=== PATIENT | female | born 1960 | race African-American/Black ===

== ENCOUNTER 2021-06-26 07:03 | Observation (INO) | payer OTHER ==
[2021-06-26 07:35] LABS: #Basophils 0.1 10x3/uL (0.0-0.2); #Eosinphils 0.3 10x3/uL (0.0-0.5); #Monocytes 0.5 10x3/uL (0.0-1.1); #Neutrophils 4.1 10x3/uL (1.5-8.4); %Basophils 0.9 % (0.0-2.0); %Eosinophils 5.1 % (0.0-6.0); %Lymphocytes 26.3 % (18.0-47.0); %Neutrophils 60.4 % (40.0-75.0); Hemoglobin 11.3 g/dL (12.0-15.5); Mean Corpuscular HGB CONC 29.8 g/dL (32.0-36.0); Mean Corpuscular Hemoglobin 23.8 pg (27.0-33.0); Mean Corpuscular Volume 79.8 fl (81.6-98.3); Mean Platelet Volume 10.6 fl (7.4-10.4); Platelet Count 254 10x3/uL (150-450); RBC Distribution Width 17.5 % (11.5-14.5); Red Blood Cell (RBC) Count 4.75 10x6/uL (3.90-5.03); White Blood Cell (WBC) Count 6.7 10x3/uL (3.5-10.5)
[2021-06-26] MEDS ORDERED: Nitroglycerin 2% Ointment 1 INCH/1 GM Packet ONE (07:35)
[2021-06-26 07:52] LABS: ALT (SGPT) 6 U/L (8-55); AST (SGOT) 10 U/L (5-34); Albumin 4.1 g/dL (3.5-5.0); Alkaline Phosphatase 80 U/L (40-110); Anion Gap 13 mmol/L (10-20); BUN (Urea Nitrogen) 31 mg/dL (9.8-20.1); Bilirubin, Total 0.2 mg/dL (0.2-1.2); Calc. Creatinine Clearance 0 mL/min (70-130); Calcium 9.3 mg/dL (7.8-10.44); Carbon Dioxide 28 mmol/L (22-29); Chloride 104 mmol/L (98-107); Globulin 4.2 g/dL (2.4-3.5); Glucose 92 mg/dL (70-105); Potassium 3.8 mmol/L (3.5-5.1); Protein, Total 8.3 g/dL (6.0-8.3); Sodium 141 mmol/L (136-145)
[2021-06-26 08:05] LABS: Anisocytosis SLIGHT = 6-15 cells (100X) (0-5/hpf); Hypochromia SLIGHT = 6-15 cells (100X) (0-5/hpf)
[2021-06-26 08:06] LABS: Platelet Morphology Comment Appears Adequate
[2021-06-26] MEDS ORDERED: Acetaminophen 325 MG TAB PO PRN (08:39)
[2021-06-26] MEDS ORDERED: HYDROcodone/Acetaminophen 5/325 mg Tablet PO PRN (08:39)
[2021-06-26] MEDS ORDERED: Ondansetron PF 4 MG/2 ML Vial IVP PRN (08:39)
[2021-06-26] MEDS ORDERED: HumaLOG 300 UNITS/3 ML VIAL SC PRN (08:49)
[2021-06-26] MEDS ORDERED: Dextrose 50% Abboject 50 ML SYRINGE SLOW IVP PRN (08:49)
[2021-06-26] MEDS ORDERED: Dextrose 5% in Water 1,000 ML IV PRN (08:49)
[2021-06-26] MEDS ORDERED: Carvedilol 25 MG TAB PO SCH ×2 (09:00→21:00)
[2021-06-26] MEDS ORDERED: Aspirin 81 mg Enteric Coated Tablet PO SCH (09:00)
[2021-06-26] MEDS ORDERED: Furosemide 40 MG TAB PO SCH (09:00)
[2021-06-26] MEDS ORDERED: Losartan Potassium 50 MG TAB PO SCH (09:00)
[2021-06-26] MEDS ORDERED: Famotidine 20 MG TAB PO SCH (09:00)
[2021-06-26] MEDS ORDERED: Nystatin Powder 15 GM BOT TOP PRN (09:01)
[2021-06-26] MEDS ORDERED: Pregabalin 50 MG CAP PO SCH ×2 (09:45→15:00)
[2021-06-26 10:24] VITALS: BMI 48.4
[2021-06-26 11:13] LABS: Troponin I Less than 0.010 ng/mL (< 0.028)
[2021-06-26] MEDS: Heparin 5,000 UNITS/ML VIAL SC SCH ×2 (13:23→15:35)
[2021-06-26 15:27] LABS: Troponin I Less than 0.010 ng/mL (< 0.028)
[2021-06-26 16:41] VITALS: BP 151/67; TEMP 96.6
[2021-06-26] MEDS ORDERED: Amlodipine 10 MG TAB PO SCH (21:00)
[2021-06-26] MEDS ORDERED: Oxybutynin 5 MG TAB PO SCH (21:00)
[2021-06-26] MEDS ORDERED: Topiramate 25 MG TAB PO SCH (21:00)
[2021-06-26] MEDS ORDERED: Lantus 1000 UNITS/10 ML VIAL SC SCH (21:00)
[2021-06-26] MEDS ORDERED: Atorvastatin Calcium 10 MG TAB PO SCH (21:00)
[2021-06-26 22:56] LABS: SARS-CoV-2 PCR by NAA Not Detected (NotDetected)
[2021-06-27] MEDS ORDERED: Alogliptin 25 MG TAB PO SCH (09:00)
== END 2021-06-26 19:30 ==
LOC: CSHERS 07:03 → CSHTELE 09:12
PROVIDERS: ADMIT Internal Medicine; ATTEND Internal Medicine
DX: R07.2 Precordial pain (principal); I25.10 Atherosclerotic heart disease of native coronary artery without angina pectoris; E11.9 Type 2 diabetes mellitus without complications; I10 Essential (primary) hypertension; E78.5 Hyperlipidemia, unspecified; Z95.5 Presence of coronary angioplasty implant and graft; E66.01 Morbid (severe) obesity due to excess calories; Z79.4 Long term (current) use of insulin; Z79.899 Other long term (current) drug therapy; Z79.82 Long term (current) use of aspirin; Z20.822 Contact with and (suspected) exposure to COVID-19
CPT/HCPCS: 36415; 36416; 71045; 80053; 83690; 83880; 84484; 85025; 93005; 93306; 94760; G0378; J1644; U0003; U0005

== ENCOUNTER 2021-09-11 01:39 | Emergency (ER) | payer OTHER | END 2021-09-11 02:20 | disposition home or self-care (01) | LOC: CSHERS 01:39 | DX: K62.89 Other specified diseases of anus and rectum (principal); E11.9 Type 2 diabetes mellitus without complications; E78.5 Hyperlipidemia, unspecified; I25.10 Atherosclerotic heart disease of native coronary artery without angina pectoris; I10 Essential (primary) hypertension; K21.9 Gastro-esophageal reflux disease without esophagitis; Z87.891 Personal history of nicotine dependence | CPT/HCPCS: 99283 ==

== ENCOUNTER 2021-12-03 14:40 | Inpatient (IN) | payer OTHER ==
[2021-12-03 15:41] LABS: Bilirubin Neg (Negative); Blood, Urine Negative (Negative); Clarity Clear (Clear); Glucose, Urine (Dipstick) Normal (Negative); Ketone, Urine Negative (Negative); Leukocyte Negative (Negative); Nitrite Negative (Negative); Protein, Urine (Dipstick) Negative (Neg-Trace); Specific Gravity, Urine 1.015 (1.005-1.030); Urobilinogen Normal mg/dL (Less than 2)
[2021-12-03] MEDS ORDERED: Hydrocortisone Sod Succ/PF 100 mg/2 ml Vial ONE (16:18)
[2021-12-03 17:01] LABS: #Basophils 0.1 10x3/uL (0.0-0.2); #Eosinphils 0.5 10x3/uL (0.0-0.5); #Monocytes 0.4 10x3/uL (0.0-1.1); #Neutrophils 3.5 10x3/uL (1.5-8.4); %Basophils 0.8 % (0.0-2.0); %Eosinophils 8.2 % (0.0-6.0); %Lymphocytes 24.8 % (18.0-47.0); %Monocytes 7.2 % (0.0-10.0); %Neutrophils 58.7 % (40.0-75.0); Hemoglobin 7.1 g/dL (12.0-15.5); Mean Corpuscular HGB CONC 29.3 g/dL (32.0-36.0); Mean Corpuscular Hemoglobin 24.6 pg (27.0-33.0); Mean Corpuscular Volume 83.7 fl (81.6-98.3); Mean Platelet Volume 10.3 fl (7.4-10.4); Platelet Count 196 10x3/uL (150-450); RBC Distribution Width 17.5 % (11.5-14.5); Red Blood Cell (RBC) Count 2.89 10x6/uL (3.90-5.03)
[2021-12-03 17:16] LABS: ALT (SGPT) 8 U/L (8-55); AST (SGOT) 9 U/L (5-34); Albumin 2.8 g/dL (3.5-5.0); Alkaline Phosphatase 88 U/L (40-110); Anion Gap 13 mmol/L (10-20); BUN (Urea Nitrogen) 37 mg/dL (9.8-20.1); Bilirubin, Total 0.1 mg/dL (0.2-1.2); Calc. Creatinine Clearance 0 mL/min (70-130); Calcium 8.7 mg/dL (7.8-10.44); Carbon Dioxide 23 mmol/L (22-29); Chloride 109 mmol/L (98-107); Estimated GFR 37; Globulin 3.5 g/dL (2.4-3.5); Glucose 137 mg/dL (70-105); Magnesium 1.7 mg/dL (1.6-2.6); Potassium 4.6 mmol/L (3.5-5.1); Protein, Total 6.3 g/dL (6.0-8.3); Sodium 140 mmol/L (136-145)
[2021-12-03 17:49] LABS: Anisocytosis SLIGHT = 6-15 cells (100X) (0-5/hpf); Hypochromia SLIGHT = 6-15 cells (100X) (0-5/hpf); Large Platelets SLIGHT; Platelet Morphology Comment Appears Adequate
[2021-12-03] MEDS ORDERED: Acetaminophen 325 MG TAB PO PRN ×2 (18:44→23:26)
[2021-12-03] MEDS ORDERED: Senokot S 8.6-50 MG TAB PO PRN (18:44)
[2021-12-03] MEDS ORDERED: Ondansetron PF 4 MG/2 ML Vial IVP PRN (18:44)
[2021-12-03] MEDS ORDERED: Dextrose 50% Abboject 50 ML SYRINGE SLOW IVP PRN (18:49)
[2021-12-03] MEDS ORDERED: Dextrose 5% in Water 1,000 ML IV PRN (18:49)
[2021-12-03] MEDS ORDERED: HumaLOG 300 UNITS/3 ML VIAL SC PRN (18:49)
[2021-12-03] MEDS ORDERED: Cefepime 2 GM VIAL ONE (19:12)
[2021-12-03] MEDS ORDERED: VANCOMYCIN 2 GRAM/400 ML BAG 2 GM in Premix Bag 1 BAG IVPB SCH (20:00)
[2021-12-03] MEDS ORDERED: Famotidine 20 MG TAB PO SCH (21:00)
[2021-12-03 22:30] VITALS: BMI 65.3
[2021-12-03] MEDS: Clindamycin 150 MG CAP PO SCH (23:42)
[2021-12-03] MEDS ORDERED: Piperacillin/Tazobactam 3.375 GM in Sodium Chloride 0.9% 100 ML IVPB SCH (23:59)
[2021-12-04 01:15] LABS: SARS-CoV-2 NAA Rapid Test Not Detected (NotDetected)
[2021-12-04] MEDS: Hydrocortisone Sod Succ/PF 100 mg/2 ml Vial IVP SCH ×3 (05:02→17:46)
[2021-12-04 05:27] LABS: Anion Gap 14 mmol/L (10-20); BUN (Urea Nitrogen) 34 mg/dL (9.8-20.1); Calc. Creatinine Clearance 115 mL/min (70-130); Carbon Dioxide 23 mmol/L (22-29); Chloride 110 mmol/L (98-107); Estimated GFR 42; Glucose 100 mg/dL (70-105); Potassium 4.9 mmol/L (3.5-5.1); Sodium 142 mmol/L (136-145)
[2021-12-04 05:31] LABS: #Eosinphils 0.1 10x3/uL (0.0-0.5); #Monocytes 0.5 10x3/uL (0.0-1.1); #Neutrophils 6.9 10x3/uL (1.5-8.4); %Basophils 0.5 % (0.0-2.0); %Eosinophils 0.7 % (0.0-6.0); %Lymphocytes 10.7 % (18.0-47.0); %Monocytes 5.7 % (0.0-10.0); %Neutrophils 82.2 % (40.0-75.0); Hemoglobin 8.8 g/dL (12.0-15.5); Mean Corpuscular HGB CONC 30.8 g/dL (32.0-36.0); Mean Corpuscular Hemoglobin 25.5 pg (27.0-33.0); Mean Corpuscular Volume 82.9 fl (81.6-98.3); Mean Platelet Volume 10.2 fl (7.4-10.4); Platelet Count 220 10x3/uL (150-450); RBC Distribution Width 17.4 % (11.5-14.5); Red Blood Cell (RBC) Count 3.45 10x6/uL (3.90-5.03); White Blood Cell (WBC) Count 8.4 10x3/uL (3.5-10.5)
[2021-12-04] MEDS: Clindamycin 150 MG CAP PO SCH (08:20)
[2021-12-04] MEDS: Topiramate 25 MG TAB PO SCH ×2 (08:21→21:37)
[2021-12-04] MEDS: Aripiprazole 10 MG TAB PO SCH (08:21)
[2021-12-04] MEDS: Oxybutynin 5 MG TAB PO SCH ×2 (08:21→21:34)
[2021-12-04] MEDS: Apixaban 5 MG TAB PO SCH ×2 (08:22→21:34)
[2021-12-04] MEDS: Famotidine 20 MG TAB PO SCH (08:22)
[2021-12-04] MEDS: Alogliptin 25 MG TAB PO SCH (08:22)
[2021-12-04] MEDS: Cholecalciferol 1,000 UNITS (25 MCG) TAB PO SCH (08:22)
[2021-12-04] MEDS: Aspirin 81 mg Enteric Coated Tablet PO SCH (08:22)
[2021-12-04] MEDS ORDERED: Carvedilol 25 MG TAB PO SCH ×2 (11:15→23:00)
[2021-12-04] MEDS: Carvedilol 25 MG TAB PO SCH ×2 (12:06→12:15)
[2021-12-04 20:32] LABS: Vancomycin, Random 22.6 ug/mL (See Comment)
[2021-12-04] MEDS ORDERED: hydrALAZINE 20 MG/ML VIAL SLOW IVP SCH (21:15)
[2021-12-04] MEDS: Pregabalin 25 MG CAP PO SCH (21:34)
[2021-12-04] MEDS: Atorvastatin Calcium 10 MG TAB PO SCH (21:34)
[2021-12-04] MEDS: Lantus 1000 UNITS/10 ML VIAL SC SCH (21:36)
[2021-12-05] MEDS ORDERED: Vancomycin 1.5 GRAM/300 ML BAG 1.5 GM in Premix Bag 1 BAG IVPB SCH ×2 (09:00→15:00)
[2021-12-05] MEDS: Carvedilol 25 MG TAB PO SCH ×2 (10:38→16:36)
[2021-12-05] MEDS: Famotidine 20 MG TAB PO SCH (10:39)
[2021-12-05] MEDS: Aripiprazole 10 MG TAB PO SCH (10:40)
[2021-12-05] MEDS: Apixaban 5 MG TAB PO SCH ×2 (10:41→22:01)
[2021-12-05] MEDS: Aspirin 81 mg Enteric Coated Tablet PO SCH (10:41)
[2021-12-05] MEDS: Furosemide 40 MG TAB PO SCH (10:42)
[2021-12-05] MEDS: Cholecalciferol 1,000 UNITS (25 MCG) TAB PO SCH (10:42)
[2021-12-05] MEDS: Alogliptin 25 MG TAB PO SCH (10:42)
[2021-12-05] MEDS: Oxybutynin 5 MG TAB PO SCH ×2 (10:43→22:01)
[2021-12-05] MEDS: Topiramate 25 MG TAB PO SCH (10:43)
[2021-12-05] MEDS: Pregabalin 25 MG CAP PO SCH ×2 (10:44→22:01)
[2021-12-05] MEDS: Atorvastatin Calcium 10 MG TAB PO SCH (22:01)
[2021-12-05] MEDS: Lantus 1000 UNITS/10 ML VIAL SC SCH (22:02)
[2021-12-05] MEDS ORDERED: Pregabalin 25 MG CAP ONE (22:03)
[2021-12-06] MEDS: Topiramate 25 MG TAB PO SCH ×2 (00:49→08:56)
[2021-12-06 04:25] LABS: Anion Gap 13 mmol/L (10-20); BUN (Urea Nitrogen) 32 mg/dL (9.8-20.1); Calc. Creatinine Clearance 138 mL/min (70-130); Carbon Dioxide 25 mmol/L (22-29); Chloride 105 mmol/L (98-107); Estimated GFR 52; Glucose 93 mg/dL (70-105); Potassium 4.3 mmol/L (3.5-5.1); Sodium 139 mmol/L (136-145)
[2021-12-06] MEDS: Aripiprazole 10 MG TAB PO SCH (08:50)
[2021-12-06] MEDS: Carvedilol 25 MG TAB PO SCH (08:56)
[2021-12-06] MEDS: Furosemide 40 MG TAB PO SCH (08:57)
[2021-12-06] MEDS: Famotidine 20 MG TAB PO SCH (08:57)
[2021-12-06] MEDS: Cholecalciferol 1,000 UNITS (25 MCG) TAB PO SCH (08:58)
[2021-12-06] MEDS: Apixaban 5 MG TAB PO SCH (08:58)
[2021-12-06] MEDS: Aspirin 81 mg Enteric Coated Tablet PO SCH (08:58)
[2021-12-06] MEDS: Oxybutynin 5 MG TAB PO SCH (08:59)
[2021-12-06] MEDS: Alogliptin 25 MG TAB PO SCH (08:59)
[2021-12-06] MEDS: Pregabalin 25 MG CAP PO SCH (09:05)
[2021-12-06 12:21] VITALS: TEMP 98.2
[2021-12-06 15:37] LABS: Vancomycin, Random 22.9 ug/mL (See Comment)
[2021-12-06 15:56] VITALS: BP 138/78
== END 2021-12-06 15:40 | disposition home or self-care (01) | DRG 922 ==
LOC: CSHERS 14:40 → OBSVTOIN 21:10 → CSHTELE 21:10
PROVIDERS: ADMIT Internal Medicine Geriatric Medicine; ATTEND Internal Medicine
DX: T68.XXXA Hypothermia, initial encounter (principal); G92.8 Other toxic encephalopathy; N17.9 Acute kidney failure, unspecified; Z68.44 Body mass index [BMI] 60.0-69.9, adult; I48.0 Paroxysmal atrial fibrillation; D63.1 Anemia in chronic kidney disease; I25.10 Atherosclerotic heart disease of native coronary artery without angina pectoris; E11.22 Type 2 diabetes mellitus with diabetic chronic kidney disease; I12.9 Hypertensive chronic kidney disease with stage 1 through stage 4 chronic kidney disease, or unspecified chronic kidney disease; E66.01 Morbid (severe) obesity due to excess calories; N18.2 Chronic kidney disease, stage 2 (mild); E78.5 Hyperlipidemia, unspecified; F32.9 Major depressive disorder, single episode, unspecified; T42.6X5A Adverse effect of other antiepileptic and sedative-hypnotic drugs, initial encounter; K21.9 Gastro-esophageal reflux disease without esophagitis; F25.0 Schizoaffective disorder, bipolar type; T50.995A Adverse effect of other drugs, medicaments and biological substances, initial encounter; Z88.8 Allergy status to other drugs, medicaments and biological substances; Z79.01 Long term (current) use of anticoagulants; Z87.891 Personal history of nicotine dependence; Z79.4 Long term (current) use of insulin; Z86.16 Personal history of COVID-19; Z79.82 Long term (current) use of aspirin; Z95.5 Presence of coronary angioplasty implant and graft; Z79.899 Other long term (current) drug therapy
CPT/HCPCS: 36415; 36416; 36430; 51702; 70450; 71045; 80048; 80053; 80202; 81003; 82274; 82533; 83605; 83735; 83880; 84443; 84484; 85025; 86850; 86900; 86901; 87040; 93005; 94760; 96361; 96374; 96375; J0360; J0692; J1720; J1815; J3370; P9016; U0002

== ENCOUNTER 2024-01-22 05:34 | Inpatient (IN) | payer OTHER ==
[2024-01-22 06:49] LABS: ALT (SGPT) Less than 7 U/L (8-55); AST (SGOT) 13 U/L (5-34); Albumin 3.3 g/dL (3.4-4.8); Alkaline Phosphatase 113 U/L (40-110); Anion Gap 16 mmol/L (10-20); BUN (Urea Nitrogen) 34 mg/dL (9.8-20.1); Bilirubin, Total 0.2 mg/dL (0.2-1.2); Calc. Creatinine Clearance 0 mL/min (70-130); Calcium 9.6 mg/dL (7.8-10.44); Carbon Dioxide 21 mmol/L (23-31); Chloride 110 mmol/L (98-107); Estimated GFR 41; Globulin 5.3 g/dL (2.4-3.5); Glucose 155 mg/dL (80-115); Potassium 4.3 mmol/L (3.5-5.1); Protein, Total 8.6 g/dL (5.8-8.1); Sodium 143 mmol/L (136-145)
[2024-01-22 06:54] LABS: Troponin I Less than 0.010 ng/mL (< 0.028)
[2024-01-22 07:01] LABS: #Basophils 0.03 10x3/uL (0.0-0.2); #Eosinophils 0.18 10x3/uL (0.0-0.5); #Monocytes 0.41 10x3/uL (0.0-1.1); #Neutrophils 6.27 10x3/uL (1.5-8.4); %Basophils 0.3 % (0.0-2.0); %Lymphocytes 22.9 % (18.0-47.0); %Monocytes 4.6 % (0.0-10.0); %Neutrophils 69.6 % (40.0-75.0); Hematocrit 21.2 % (34.9-44.5); Hemoglobin 6.2 g/dL (12.0-15.5); Mean Corpuscular HGB CONC 29.2 g/dL (32.0-36.0); Mean Corpuscular Hemoglobin 25.3 pg (27.0-33.0); Mean Corpuscular Volume 86.5 fL (81.6-98.3); Mean Platelet Volume 9.7 fL (7.4-10.4); Platelet Count 361 10x3/uL (150-450); RBC Distribution Width 19.6 % (11.5-14.5); Red Blood Cell (RBC) Count 2.45 10x6/uL (3.90-5.03)
[2024-01-22] MEDS ORDERED: Glucagon 1 MG/ML KIT IM PRN (08:20)
[2024-01-22] MEDS ORDERED: Dextrose 50% Abboject 50 ML SYRINGE SLOW IVP PRN (08:20)
[2024-01-22] MEDS ORDERED: Dextrose 5% in Water 1,000 ML IV PRN (08:20)
[2024-01-22] MEDS ORDERED: Acetaminophen 325 MG TAB PO PRN (08:20)
[2024-01-22] MEDS ORDERED: Nitroglycerin 0.4 MG TAB 1 EACH SL PRN (08:40)
[2024-01-22] MEDS: Pantoprazole 40 MG VIAL IVP SCH (09:00)
[2024-01-22] MEDS ORDERED: Aspirin Chewable 81 MG TAB PO SCH (09:00)
[2024-01-22 10:19] LABS: Troponin I Less than 0.010 ng/mL (< 0.028)
[2024-01-22 12:41] LABS: Troponin I Less than 0.010 ng/mL (< 0.028)
[2024-01-22 15:12] VITALS: BMI 42.9
[2024-01-22] MEDS: Carvedilol 25 MG TAB PO SCH (18:12)
[2024-01-22] MEDS ORDERED: Nitroglycerin 0.4 MG TAB (25 Tab Bottle) SL PRN (21:18)
[2024-01-22] MEDS: Lantus 1000 UNITS/10 ML VIAL SC SCH (21:37)
[2024-01-22 22:12] LABS: Critical Call w/ Read Back @CRITICAL LED NUR.TL5 @2210; Hematocrit 17.1 % (34.9-44.5); Hemoglobin 5.1 g/dL (12.0-15.5)
[2024-01-22] MEDS ORDERED: Octreotide Acetate 50 MCG/ML AMP SLOW IVP SCH (22:30)
[2024-01-23] MEDS: Octreotide Acetate 50 MCG/ML AMP SLOW IVP SCH (00:09)
[2024-01-23] MEDS: Pantoprazole 80 MG, Admixture Fee 1 EACH in Sodium Chloride 0.9% 100 ML IVPB SCH (00:15)
[2024-01-23] MEDS: Octreotide Acetate 1,250 MCG in Sodium Chloride 0.9% 250 ML 250 ML IVPB SCH (02:15)
[2024-01-23 03:48] LABS: #Basophils 0.04 10x3/uL (0.0-0.2); #Monocytes 0.54 10x3/uL (0.0-1.1); %Basophils 0.4 % (0.0-2.0); %Eosinophils 2.2 % (0.0-6.0); %Lymphocytes 26.7 % (18.0-47.0); %Monocytes 5.9 % (0.0-10.0); %Neutrophils 64.3 % (40.0-75.0); Hematocrit 21.4 % (34.9-44.5); Hemoglobin 6.3 g/dL (12.0-15.5); Mean Corpuscular HGB CONC 29.4 g/dL (32.0-36.0); Mean Corpuscular Hemoglobin 24.5 pg (27.0-33.0); Mean Corpuscular Volume 83.3 fL (81.6-98.3); Mean Platelet Volume 9.6 fL (7.4-10.4); Platelet Count 245 10x3/uL (150-450); RBC Distribution Width 19.9 % (11.5-14.5); Red Blood Cell (RBC) Count 2.57 10x6/uL (3.90-5.03); White Blood Cell (WBC) Count 9.2 10x3/uL (3.5-10.5)
[2024-01-23 04:03] LABS: Anion Gap 14 mmol/L (10-20); BUN (Urea Nitrogen) 37 mg/dL (9.8-20.1); Calc. Creatinine Clearance 99 mL/min (70-130); Calcium 8.8 mg/dL (7.8-10.44); Carbon Dioxide 19 mmol/L (23-31); Chloride 113 mmol/L (98-107); Estimated GFR 59; Glucose 98 mg/dL (80-115); Potassium 3.9 mmol/L (3.5-5.1); Sodium 142 mmol/L (136-145)
[2024-01-23] MEDS ORDERED: Acetaminophen 325 MG TAB PO PRN (08:12)
[2024-01-23] MEDS ORDERED: Bisacodyl 5 MG TAB PO PRN (08:12)
[2024-01-23] MEDS ORDERED: Bisacodyl 10 MG SUPP PR PRN (08:12)
[2024-01-23] MEDS ORDERED: Cyclobenzaprine 10 MG TAB PO PRN (08:17)
[2024-01-23] MEDS ORDERED: Miconazole Nitrate Powder 2% 45 gm TOP PRN (08:20)
[2024-01-23] MEDS ORDERED: Nystatin Powder 15 GM BOT TOP PRN (08:21)
[2024-01-23 09:19] LABS: Hematocrit 25.1 % (34.9-44.5); Hemoglobin 7.8 g/dL (12.0-15.5)
[2024-01-23 09:32] LABS: Iron 196 ug/dL (50-170); Iron Binding Capacity, Total 293 mcg/dL (265-497)
[2024-01-23 09:43] LABS: INR-International Normal Ratio 1.1; PTT 25.9 sec (22.0-33.0); Prothrombin Time 11.4 sec (9.5-12.1)
[2024-01-23] MEDS: glipiZIDE 5 MG TAB PO SCH (10:03)
[2024-01-23] MEDS: Magnesium Oxide 400 MG TAB PO SCH (10:04)
[2024-01-23] MEDS: Isosorbide Mononitrate 30 MG ER.TAB PO SCH (10:04)
[2024-01-23] MEDS: Gabapentin 300 MG CAP PO SCH (10:04)
[2024-01-23] MEDS: Cholecalciferol 1,000 UNITS (25 MCG) TAB PO SCH (10:04)
[2024-01-23] MEDS: Lantus 1000 UNITS/10 ML VIAL SC SCH (10:04)
[2024-01-23] MEDS: Oxybutynin 5 MG TAB PO SCH (10:04)
[2024-01-23] MEDS: Insulin Regular, Human 100 UNIT/ML 10 ML VIAL SC PRN (13:32)
[2024-01-23 16:53] LABS: Hemoglobin 8.3 g/dL (12.0-15.5)
[2024-01-23] MEDS: GoLYTELY 4,000 ml Bottle PO SCH (19:35)
[2024-01-23 21:18] VITALS: BMI 42.9
[2024-01-23 23:23] LABS: Hemoglobin 9.4 g/dL (12.0-15.5)
[2024-01-24 05:10] LABS: Anion Gap 15 mmol/L (10-20); BUN (Urea Nitrogen) 25 mg/dL (9.8-20.1); Calc. Creatinine Clearance 108 mL/min (70-130); Calcium 9.1 mg/dL (7.8-10.44); Carbon Dioxide 20 mmol/L (23-31); Chloride 111 mmol/L (98-107); Estimated GFR 66; Glucose 157 mg/dL (80-115); Sodium 142 mmol/L (136-145)
[2024-01-24 05:16] LABS: #Basophils 0.06 10x3/uL (0.0-0.2); #Eosinophils 0.21 10x3/uL (0.0-0.5); #Monocytes 0.74 10x3/uL (0.0-1.1); #Neutrophils 6.63 10x3/uL (1.5-8.4); %Basophils 0.6 % (0.0-2.0); %Eosinophils 2.1 % (0.0-6.0); %Lymphocytes 22.4 % (18.0-47.0); %Monocytes 7.5 % (0.0-10.0); %Neutrophils 66.9 % (40.0-75.0); Hemoglobin 9.5 g/dL (12.0-15.5); Mean Corpuscular HGB CONC 31.7 g/dL (32.0-36.0); Mean Corpuscular Hemoglobin 25.7 pg (27.0-33.0); Mean Corpuscular Volume 81.3 fL (81.6-98.3); Mean Platelet Volume 9.5 fL (7.4-10.4); Platelet Count 261 10x3/uL (150-450); RBC Distribution Width 19.4 % (11.5-14.5); Red Blood Cell (RBC) Count 3.69 10x6/uL (3.90-5.03); White Blood Cell (WBC) Count 9.9 10x3/uL (3.5-10.5)
[2024-01-24] MEDS ORDERED: PROPOFOL 20 ML ONE ×2 (14:24→14:53)
[2024-01-24] MEDS ORDERED: PHENYLEPHRINE-NS 100 MCG/ML 10 ML SYRINGE ONE (14:35)
[2024-01-24 16:00] VITALS: BP 140/79; TEMP 98.1
[2024-01-25] MEDS ORDERED: Oxybutynin 5 MG TAB ONE (09:11)
[2024-01-25] MEDS ORDERED: Gabapentin 300 MG CAP ONE (09:11)
[2024-01-25] MEDS ORDERED: glipiZIDE 5 MG TAB ONE (09:11)
[2024-01-25] MEDS ORDERED: Isosorbide Mononitrate 30 MG ER.TAB ONE (09:11)
[2024-01-25] MEDS ORDERED: Magnesium Oxide 400 MG TAB ONE (09:11)
[2024-01-25] MEDS ORDERED: Cholecalciferol 1,000 UNITS (25 MCG) TAB ONE (09:11)
[2024-01-26 17:20] LABS: #Basophils 0.04 10x3/uL (0.0-0.2); #Eosinophils 0.16 10x3/uL (0.0-0.5); #Monocytes 0.51 10x3/uL (0.0-1.1); #Neutrophils 5.33 10x3/uL (1.5-8.4); %Basophils 0.5 % (0.0-2.0); %Lymphocytes 23.6 % (18.0-47.0); %Monocytes 6.4 % (0.0-10.0); %Neutrophils 67.2 % (40.0-75.0); Hematocrit 26.1 % (34.9-44.5); Hemoglobin 8.1 g/dL (12.0-15.5); Mean Corpuscular Hemoglobin 25.9 pg (27.0-33.0); Mean Corpuscular Volume 83.4 fL (81.6-98.3); Mean Platelet Volume 9.3 fL (7.4-10.4); Platelet Count 237 10x3/uL (150-450); RBC Distribution Width 19.1 % (11.5-14.5); Red Blood Cell (RBC) Count 3.13 10x6/uL (3.90-5.03); White Blood Cell (WBC) Count 7.9 10x3/uL (3.5-10.5)
[2024-01-27 20:15] LABS: #Basophils 0.04 10x3/uL (0.0-0.2); #Eosinophils 0.21 10x3/uL (0.0-0.5); #Monocytes 0.94 10x3/uL (0.0-1.1); #Neutrophils 5.71 10x3/uL (1.5-8.4); %Basophils 0.4 % (0.0-2.0); %Eosinophils 2.3 % (0.0-6.0); %Lymphocytes 23.5 % (18.0-47.0); %Monocytes 10.4 % (0.0-10.0); %Neutrophils 63.2 % (40.0-75.0); Hematocrit 26.5 % (34.9-44.5); Hemoglobin 8.1 g/dL (12.0-15.5); Mean Corpuscular HGB CONC 30.6 g/dL (32.0-36.0); Mean Corpuscular Hemoglobin 26.1 pg (27.0-33.0); Mean Corpuscular Volume 85.5 fL (81.6-98.3); Mean Platelet Volume 9.6 fL (7.4-10.4); Platelet Count 237 10x3/uL (150-450); RBC Distribution Width 19.4 % (11.5-14.5); White Blood Cell (WBC) Count 9.1 10x3/uL (3.5-10.5)
[2024-01-27 20:33] LABS: Anion Gap 13 mmol/L (10-20); BUN (Urea Nitrogen) 22 mg/dL (9.8-20.1); Carbon Dioxide 19 mmol/L (23-31); Chloride 113 mmol/L (98-107); Potassium 4.1 mmol/L (3.5-5.1); Sodium 141 mmol/L (136-145)
[2024-01-27 20:34] LABS: Calc. Creatinine Clearance 120 mL/min (70-130); Calcium 8.7 mg/dL (7.6-10.4); Estimated GFR 75; Glucose 94 mg/dL (80-115)
[2024-02-05 11:18] LABS: Hemoglobin 7.8 g/dL (12.0-15.5)
== END 2024-01-26 15:30 | disposition home or self-care (01) | DRG 812 ==
LOC: CSHERS 05:34 → CSHERHOLD 07:51 → CSHTELE 11:05 → OBSVTOIN 01-23 08:09
PROVIDERS: ADMIT Hospitalist; ATTEND Nurse Practitioner Acute Care
PROC: 0DJ08ZZ Inspection of Upper Intestinal Tract, Via Natural or Artificial Opening Endoscopic (ICD-10-PCS; principal; 2024-01-24)
PROC: 3E033XZ Introduction of Vasopressor into Peripheral Vein, Percutaneous Approach (ICD-10-PCS; 2024-01-24)
DX: D64.9 Anemia, unspecified (principal); Z68.41 Body mass index [BMI] 40.0-44.9, adult; R07.9 Chest pain, unspecified; I25.10 Atherosclerotic heart disease of native coronary artery without angina pectoris; K21.9 Gastro-esophageal reflux disease without esophagitis; E78.5 Hyperlipidemia, unspecified; E66.9 Obesity, unspecified; I12.9 Hypertensive chronic kidney disease with stage 1 through stage 4 chronic kidney disease, or unspecified chronic kidney disease; E11.22 Type 2 diabetes mellitus with diabetic chronic kidney disease; N18.30 Chronic kidney disease, stage 3 unspecified; E11.51 Type 2 diabetes mellitus with diabetic peripheral angiopathy without gangrene; F31.9 Bipolar disorder, unspecified; I48.0 Paroxysmal atrial fibrillation; D63.1 Anemia in chronic kidney disease; K29.60 Other gastritis without bleeding; Z98.42 Cataract extraction status, left eye; Z98.41 Cataract extraction status, right eye; Z74.01 Bed confinement status
CPT/HCPCS: 36415; 36416; 36430; 71045; 80048; 80053; 82607; 83540; 83550; 83615; 84484; 85025; 85610; 85730; 86850; 86900; 86901; 93005; 93010; 93306; 96374; 96375; 96376; G0378; J1815; J2354; J2470; J2704; J7050; P9016

== ENCOUNTER 2024-02-01 19:37 | Inpatient (IN) | payer OTHER ==
[2024-02-01] MEDS ORDERED: Pantoprazole 40 MG VIAL ONE (20:16)
[2024-02-01 20:30] LABS: #Basophils 0.03 10x3/uL (0.0-0.2); #Eosinophils 0.24 10x3/uL (0.0-0.5); #Monocytes 0.55 10x3/uL (0.0-1.1); #Neutrophils 7.04 10x3/uL (1.5-8.4); %Basophils 0.3 % (0.0-2.0); %Eosinophils 2.3 % (0.0-6.0); %Lymphocytes 24.5 % (18.0-47.0); %Monocytes 5.3 % (0.0-10.0); %Neutrophils 67.1 % (40.0-75.0); Hematocrit 18.1 % (34.9-44.5); Hemoglobin 5.4 g/dL (12.0-15.5); Mean Corpuscular HGB CONC 29.8 g/dL (32.0-36.0); Mean Corpuscular Hemoglobin 26.1 pg (27.0-33.0); Mean Corpuscular Volume 87.4 fL (81.6-98.3); Mean Platelet Volume 10.1 fL (7.4-10.4); Platelet Count 263 10x3/uL (150-450); RBC Distribution Width 19.3 % (11.5-14.5); Red Blood Cell (RBC) Count 2.07 10x6/uL (3.90-5.03); White Blood Cell (WBC) Count 10.5 10x3/uL (3.5-10.5)
[2024-02-01 20:37] LABS: PTT 27.7 sec (22.0-33.0); Prothrombin Time 11.1 sec (9.5-12.1)
[2024-02-01 20:40] LABS: ALT (SGPT) 9 U/L (8-55); AST (SGOT) 9 U/L (5-34); Albumin 2.6 g/dL (3.4-4.8); Alkaline Phosphatase 75 U/L (40-110); Anion Gap 11 mmol/L (10-20); BUN (Urea Nitrogen) 34 mg/dL (9.8-20.1); Bilirubin, Total Less than 0.2 mg/dL (0.2-1.2); Calc. Creatinine Clearance 0 mL/min (70-130); Carbon Dioxide 23 mmol/L (23-31); Chloride 110 mmol/L (98-107); Estimated GFR 61; Globulin 3.4 g/dL (2.4-3.5); Glucose 96 mg/dL (80-115); Magnesium 1.8 mg/dL (1.6-2.6); Potassium 3.8 mmol/L (3.5-5.1); Sodium 140 mmol/L (136-145)
[2024-02-01 20:47] LABS: Troponin I Less than 0.010 ng/mL (< 0.028)
[2024-02-01] MEDS ORDERED: Ondansetron PF 4 MG/2 ML Vial IVP PRN (21:24)
[2024-02-01] MEDS ORDERED: Acetaminophen 650 MG Suppository PR PRN (21:24)
[2024-02-01] MEDS ORDERED: Ondansetron ODT 4 MG TAB PO PRN (21:24)
[2024-02-01] MEDS ORDERED: Lantus 1000 UNITS/10 ML VIAL SC SCH (22:00)
[2024-02-01 23:08] VITALS: BMI 44.7
[2024-02-01] MEDS: Pantoprazole 80 MG, Admixture Fee 1 EACH in Sodium Chloride 0.9% 100 ML IVPB SCH (23:36)
[2024-02-02 07:06] LABS: Hematocrit 23.8 % (34.9-44.5); Hemoglobin 7.6 g/dL (12.0-15.5)
[2024-02-02 07:24] LABS: Anion Gap 12 mmol/L (10-20); BUN (Urea Nitrogen) 33 mg/dL (9.8-20.1); Calc. Creatinine Clearance 109 mL/min (70-130); Calcium 8.4 mg/dL (7.8-10.44); Carbon Dioxide 23 mmol/L (23-31); Chloride 110 mmol/L (98-107); Estimated GFR 61; Glucose 113 mg/dL (80-115); Potassium 3.8 mmol/L (3.5-5.1); Sodium 141 mmol/L (136-145)
[2024-02-02] MEDS: Lantus 1000 UNITS/10 ML VIAL SC SCH ×2 (10:00→21:04)
[2024-02-02] MEDS: Isosorbide Mononitrate 30 MG ER.TAB PO SCH (10:01)
[2024-02-02] MEDS: Gabapentin 300 MG CAP PO SCH (10:01)
[2024-02-02] MEDS: Cholecalciferol 1,000 UNITS (25 MCG) TAB PO SCH (10:01)
[2024-02-02] MEDS: Oxybutynin 5 MG TAB PO SCH (10:02)
[2024-02-02] MEDS: Carvedilol 25 MG TAB PO SCH (10:02)
[2024-02-02 13:42] LABS: Hematocrit 25.2 % (34.9-44.5); Hemoglobin 7.8 g/dL (12.0-15.5)
[2024-02-02 19:42] LABS: Hemoglobin 8.9 g/dL (12.0-15.5)
[2024-02-03 01:17] LABS: Hematocrit 23.9 % (34.9-44.5); Hemoglobin 7.6 g/dL (12.0-15.5)
[2024-02-03 06:56] LABS: Hematocrit 21.7 % (34.9-44.5); Hemoglobin 6.8 g/dL (12.0-15.5)
[2024-02-03] MEDS: Acetaminophen 325 MG TAB PO PRN (09:54)
[2024-02-03] MEDS: HYDROcodone/Acetaminophen 10/325 mg Tablet PO PRN (13:24)
[2024-02-03 15:10] LABS: Hematocrit 22.3 % (34.9-44.5); Hemoglobin 6.8 g/dL (12.0-15.5)
[2024-02-03] MEDS ORDERED: GoLYTELY 4,000 ml Bottle PO SCH (18:00)
[2024-02-03 19:02] LABS: Hematocrit 21.9 % (34.9-44.5); Hemoglobin 6.9 g/dL (12.0-15.5)
[2024-02-04 04:46] LABS: Anion Gap 11 mmol/L (10-20); BUN (Urea Nitrogen) 20 mg/dL (9.8-20.1); Calc. Creatinine Clearance 144 mL/min (70-130); Calcium 8.3 mg/dL (7.8-10.44); Carbon Dioxide 23 mmol/L (23-31); Chloride 109 mmol/L (98-107); Estimated GFR 85; Glucose 90 mg/dL (80-115); Potassium 3.9 mmol/L (3.5-5.1); Sodium 139 mmol/L (136-145)
[2024-02-04 04:53] LABS: #Basophils 0.05 10x3/uL (0.0-0.2); #Neutrophils 6.01 10x3/uL (1.5-8.4); %Basophils 0.6 % (0.0-2.0); %Eosinophils 2.3 % (0.0-6.0); %Lymphocytes 20.4 % (18.0-47.0); %Monocytes 5.9 % (0.0-10.0); %Neutrophils 70.4 % (40.0-75.0); Hematocrit 23.2 % (34.9-44.5); Hemoglobin 7.2 g/dL (12.0-15.5); Mean Corpuscular Hemoglobin 26.4 pg (27.0-33.0); Mean Platelet Volume 10.1 fL (7.4-10.4); Platelet Count 236 10x3/uL (150-450); RBC Distribution Width 19.3 % (11.5-14.5); Red Blood Cell (RBC) Count 2.73 10x6/uL (3.90-5.03); White Blood Cell (WBC) Count 8.5 10x3/uL (3.5-10.5)
[2024-02-04] MEDS: GoLYTELY 4,000 ml Bottle PO SCH (04:59)
[2024-02-04] MEDS: Dextrose 50% Abboject 50 ML SYRINGE SLOW IVP SCH (09:46)
[2024-02-04] MEDS ORDERED: PROPOFOL 80 ML ONE (11:18)
[2024-02-04] MEDS ORDERED: fentaNYL 50 mcg/mL 1 mL Vial ONE (11:19)
[2024-02-04] MEDS ORDERED: ePHEDrine Sulfate 50 MG/10 ML VIAL ONE (13:00)
[2024-02-04] MEDS ORDERED: Mupirocin 2% Ointment 22 GM Tube ONE (13:20)
[2024-02-04] MEDS: Dextrose 50% Abboject 50 ML SYRINGE ONE (21:17)
[2024-02-04] MEDS: Pantoprazole DR 40 MG TAB PO SCH (21:24)
[2024-02-05 04:03] LABS: #Basophils 0.03 10x3/uL (0.0-0.2); #Eosinophils 0.23 10x3/uL (0.0-0.5); #Monocytes 0.44 10x3/uL (0.0-1.1); #Neutrophils 5.12 10x3/uL (1.5-8.4); %Basophils 0.4 % (0.0-2.0); %Eosinophils 3.1 % (0.0-6.0); %Lymphocytes 21.5 % (18.0-47.0); %Monocytes 5.9 % (0.0-10.0); %Neutrophils 68.7 % (40.0-75.0); Hematocrit 22.8 % (34.9-44.5); Hemoglobin 7.1 g/dL (12.0-15.5); Mean Corpuscular HGB CONC 31.1 g/dL (32.0-36.0); Mean Corpuscular Hemoglobin 26.6 pg (27.0-33.0); Mean Corpuscular Volume 85.4 fL (81.6-98.3); Mean Platelet Volume 9.6 fL (7.4-10.4); Platelet Count 253 10x3/uL (150-450); RBC Distribution Width 19.1 % (11.5-14.5); Red Blood Cell (RBC) Count 2.67 10x6/uL (3.90-5.03); White Blood Cell (WBC) Count 7.5 10x3/uL (3.5-10.5)
[2024-02-05 04:13] LABS: Anion Gap 11 mmol/L (10-20); BUN (Urea Nitrogen) 12 mg/dL (9.8-20.1); Calc. Creatinine Clearance 150 mL/min (70-130); Calcium 8.5 mg/dL (7.8-10.44); Carbon Dioxide 23 mmol/L (23-31); Chloride 110 mmol/L (98-107); Estimated GFR 89; Glucose 92 mg/dL (80-115); Potassium 4.1 mmol/L (3.5-5.1); Sodium 140 mmol/L (136-145)
[2024-02-05] MEDS ORDERED: Iron Sucrose Complex 500 MG in Sodium Chloride 0.9% 250 ML 250 ML IVPB SCH (08:45)
[2024-02-05] MEDS ORDERED: Acetaminophen 500 MG TAB PO SCH (08:45)
[2024-02-05] MEDS: Sodium Ferric Gluconate 250 MG in Sodium Chloride 0.9% 250 ML 250 ML IVPB SCH (09:56)
[2024-02-05 12:42] VITALS: BP 122/62; TEMP 98.2
== END 2024-02-05 15:37 | DRG 381 ==
LOC: SUATTDRO 19:37 → CSHERS 19:37 → CSHTELE 21:28
PROVIDERS: ADMIT Family Medicine; ATTEND Internal Medicine
PROC: 0DJ08ZZ Inspection of Upper Intestinal Tract, Via Natural or Artificial Opening Endoscopic (ICD-10-PCS; principal; 2024-02-04)
PROC: 0DJD8ZZ Inspection of Lower Intestinal Tract, Via Natural or Artificial Opening Endoscopic (ICD-10-PCS; 2024-02-04)
DX: K22.11 Ulcer of esophagus with bleeding (principal); Z68.41 Body mass index [BMI] 40.0-44.9, adult; I25.10 Atherosclerotic heart disease of native coronary artery without angina pectoris; E78.5 Hyperlipidemia, unspecified; K21.9 Gastro-esophageal reflux disease without esophagitis; E66.01 Morbid (severe) obesity due to excess calories; I48.91 Unspecified atrial fibrillation; F31.9 Bipolar disorder, unspecified; N18.30 Chronic kidney disease, stage 3 unspecified; E11.22 Type 2 diabetes mellitus with diabetic chronic kidney disease; I12.9 Hypertensive chronic kidney disease with stage 1 through stage 4 chronic kidney disease, or unspecified chronic kidney disease; E11.40 Type 2 diabetes mellitus with diabetic neuropathy, unspecified; K43.9 Ventral hernia without obstruction or gangrene; D63.8 Anemia in other chronic diseases classified elsewhere; Z87.891 Personal history of nicotine dependence; Z79.01 Long term (current) use of anticoagulants; Z79.82 Long term (current) use of aspirin; Z79.899 Other long term (current) drug therapy; Z79.4 Long term (current) use of insulin; Z88.8 Allergy status to other drugs, medicaments and biological substances
CPT/HCPCS: 36415; 36416; 36430; 71045; 80048; 80053; 83735; 84484; 85014; 85018; 85025; 85610; 85730; 86850; 86900; 86901; 93005; 94760; 94762; 96374; J1815; J2470; J2704; J2916; J3010; J7050; J7999; P9016